=== PATIENT | male | born 1995 | race Caucasian/White ===

== ENCOUNTER 2021-03-02 08:43 | Outpatient (CLI) | payer OTHER ==
--- NOTE | 2021-03-02 09:43 | SLEEP CARE CONSULTATION ---
Information from patient questionnaire entered by Florence Jiang. I have reviewed and concur with the information entered by Florence Jiang. This document represents the service I personally performed and the decisions made by me, Nilda Todd ARNP. History of Present Illness Service Date and Time: 03/02/2021 0843 Reason for Visit: New patient Chief Complaint: reports: Unrefreshed sleep, Snoring, Excessive daytime sleepiness, Observed pauses in breathing, Fatigue, Frequent awakenings at night Date of Onset: 3+ years Usual bedtime: 1452-8418, weekends 2300 Time it takes to fall asleep: 30 minutes to 4 hours Snores at night: Yes Observed to quit breathing while asleep: Yes Sleeps alone due to snoring: No Number of times waking at night: 2-5 Reasons for waking at night: reports: Gasping for air, Other (unknown reason) Toss, Turn, or Twitch while sleeping: Yes (for about 30 mins to 2 hrs after falling asleep) Recalls having dreams: No Usually gets out of bed at: [id number]; [id number] Feels refreshed in the morning: No Morning headache: No Sleepy or fatigued during the day: Yes Ever fallen asleep while driving: No (drowsy driving, rarely) Takes day naps: Yes (once a week, after work for couple hours) Dreams during day naps: No Prior sleep studies: No Additional HPI information: I had the pleasure of seeing DARCI VEGAS today regarding the possibility of him having a sleep disorder. His current complaints are excessive daytime sleepiness, fatigue, frequent awakenings at night, observed pauses in breathing, snoring and unrefreshed sleep. He was discussing his sleeping habits at behavioral health and they suggested he try to be evaluated. He states if he doesn't get at least 11 hours of sleep he does not feel rested. His girlfriend has seen him have pauses in breathing when sleeping and has told him that he twitches for 30 minutes to 2 hours after he has fallen asleep. 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 Patient is Legally and lives in . Have you smoked in the past 12 months: No Alcohol use: Yes Alcohol amount and frequency: 4-5 drinks, 2-3 times/month Caffeine use: Yes Caffeine amount and frequency: 1 bottle of soda per week Family History Family history of sleep disordered breathing: Yes Family Hx Sleep Apnea: Father: Snoring, Sleep apnea - Treated Allergies and Home Medications Drug allergies reviewed: Yes (possibly Amoxicillin, not tested) Home medication list reviewed: Yes Allergy and home medication list: Lexapro 30 mg Zyrtec Review of Systems Weight gain over past 5 years: 45 Cardiovascular: denies: high blood pressure Gastrointestinal: denies: heartburn Neurological: reports: disorientation. denies: headaches Psychiatric: reports: anxiety, depression Ear/Nose/Throat: reports: sinus problems, wisdom teeth removed. denies: injury to nose, tonsillectomy Musculoskeletal: reports: joint pain, back pain Immunologic: reports: allergies to food or environment (*environment, spring and fall) Physical Exam Blood Pressure: 112/79 (right) Cuff size: wrist Heart Rate: 89 O2 Saturation: 96 Height: 5 ft 5 in Weight: 218 lb Body Mass Index: 36.2 BMI Classification: Obese Neck circumference: 15.25 (inches) Nostrils: patent to airflow Mouth and throat: narrow oropharynx Soft palate: long Hard palate: arched Uvula: normal Uvula visualization: 100% Mallampati Class I Tongue: enlarged in size with teeth cohen on lateral edges Tonsils: 1+ Neck: normal w/o lymphadenopathy or thyromegaly Heart: regular rate and rhythm Lungs: clear bilaterally Impression and Plan 1. Suspected Obstructive Sleep Apnea-Hypopnea Syndrome, as suggested by a history of loud and irregular snoring, observed cessation of breath while asleep, gasping or choking in sleep, frequent awakening during the night, unrefreshed sleep, cognitive impairment, and excessive daytime sleepiness. Narrow oropharynx and obesity are common predisposing factors for obstructive sleep apnea-hypopnea syndrome. I recommend proceeding to polysomnography to confirm the diagnosis and to assess severity. If the patient has significant sleep disordered breathing, a manual CPAP titration study will also be performed to find the optimal treatment pressure. I informed the patient of what the sleep studies involve and after some discussion, obtained agreement to proceed. The pathophysiology of obstructive sleep apnea-hypopnea syndrome was discussed with the patient and health risks of cardiovascular and cerebrovascular disease if not treated. [facility] brochure for obstructive sleep apnea-hypopnea syndrome given and reviewed. Risks of drowsy driving discussed in detail and patient advised to avoid long distance driving and to rib puller at the first sign of drowsiness. Patient agreed to plan. * Schedule polysomnography +- manual CPAP titration study and return in 1-2 weeks after the study to discuss result and initiate therapy. * Avoid long distance driving or driving when feeling sleepy. * Avoid alcohol, sedative and muscle relaxant around bedtime. * Attempt to lose weight. * Review instructions provided by trained office staff on how to prepare for the sleep study. * Return for follow-up after sleep study completed. Counseling Topics: Weight loss health impact Visit Type: In Office Time Spent with Patient (minutes): 30 Provider Statement: I spent 100% of the Face to Face Visit with the patient with greater than 50% spent counseling the patient and coordination of care.
[2021-03-02 09:44] VITALS: BP 112/79
== END 2021-03-02 08:44 | disposition home or self-care (01) ==
LOC: SC 08:43
PROVIDERS: ATTEND Nurse Practitioner Family
DX: R06.83 Snoring (principal); G47.8 Other sleep disorders; R06.81 Apnea, not elsewhere classified; E66.9 Obesity, unspecified; Z68.36 Body mass index [BMI] 36.0-36.9, adult
CPT/HCPCS: 99203; 99212

== ENCOUNTER 2021-06-21 12:42 | Outpatient (CLI) | payer OTHER ==
[2021-06-21] MEDS ORDERED: GADOBUTROL 10 MMOL/10 ML VIAL ONE (12:58)
--- NOTE | 2021-06-21 14:22 | MRI Report ---
PROCEDURE: Brain W/WO INDICATIONS: DIZZINESS, CT SHOWING POSSIBLE CYST CONTRAST: 9.5 mL Gadavist TECHNIQUE: Noncontrast axial T1 spin echo, axial T2 fast spin echo, sagittal and axial FLAIR, coronal T2 fast sp in echo, axial gradient echo, axial diffusion and ADC through the brain. After the administration of contrast, axial and coronal T1 spin echo with fat saturation through the brain. COMPARISON: None. FINDINGS: Image quality: Excellent. CSF spaces: Basal cisterns are patent. No extra-axial fluid collections. Ventricles are normal in size and shape. Brain: Nonenhancing lesion in the right mesial temporal lobe region consistent with a choroidal fissu re cyst measures approximately 9 mm. This demonstrates suppressed signal on the FLAIR sequence indica ting contents is similar to identical to that of CSF. Otherwise normal brain parenchymal signal inten sity. The major intracranial vascular flow-related signal voids are maintained. No mass effect or mid line shift. No abnormal intracranial susceptibility or enhancement. Skull and face: Calvarial marrow is normal in signal. Orbits appear normal. Sinuses: Small mucous retention cysts in the left and right maxillary sinuses. Otherwise clear parana alida sinuses and mastoid air cells. IMPRESSION: Approximately 9 mm cystic nonenhancing lesion in the right mesial temporal lobe is consistent with a benign choroidal fissure cyst, or less likely another benign intracranial cyst). No additional follow -up needed. Reviewed by: Marvin Quiñones MD on 06/21/2021 2:21 PM PST Approved by: Marvin Quiñones MD on 06/21/2021 2:21 PM PST Station ID: [id number]
[2021-06-22] MEDS ORDERED: GADOBUTROL 10 MMOL/10 ML VIAL IVP ONE (07:40)
== END 2021-06-21 12:43 | disposition home or self-care (01) ==
LOC: DI 12:42
PROVIDERS: ATTEND Physician Assistant
DX: R42 Dizziness and giddiness (principal); R90.89 Other abnormal findings on diagnostic imaging of central nervous system
CPT/HCPCS: 70553; A9585

== ENCOUNTER 2021-06-22 19:32 | Outpatient (CLI) | payer OTHER | END 2021-06-22 19:33 | disposition home or self-care (01) | LOC: SC 19:32 | PROVIDERS: ATTEND Nurse Practitioner Family | DX: F32.9 Major depressive disorder, single episode, unspecified (principal); G47.33 Obstructive sleep apnea (adult) (pediatric) | CPT/HCPCS: 95810 ==

== ENCOUNTER 2021-07-13 08:16 | Outpatient (CLI) | payer OTHER ==
[2021-07-13 09:06] VITALS: BP 128/73
--- NOTE | 2021-07-13 09:06 | SLEEP CARE CONSULTATION ---
Information from patient questionnaire entered by Damon Prince MA. I have reviewed and concur with the information entered by Damon Prince MA. This document represents the service I personally performed and the decisions made by , iNlda Todd ARNP. History of Present Illness Service Date and Time: 07/13/2021 0816 Initial [place] Sleepiness Scale score: 11 (in 2020) Current [place] Sleepiness Scale score: 13 (2021) Additional HPI information: DARCI VEGAS returns for follow up and results of the recently performed polysomnography. I explained the pathophysiology behind obstructive sleep apnea. We then spent quite a bit of time discussing different treatment options. For mild obstructive sleep apnea, surgery and oral appliance are alternatives to nasal CPAP therapy but in moderate or severe cases, nasal CPAP is the most effective and reliable treatment. Because apnea is primarily in supine position, then positional management therapy could be effective. Methods discussed such as positioning with pillows, using a T-shirt with tennis balls in the back, and shown commercial products that have a pillow format on back to prevent supine sleep. I reviewed the impact of weight changes on sleep apnea and strongly recommended losing weight. After some discussion, the patient opted to go with the nasal CPAP therapy. Nasal autoCPAP set at 4-15 cmH20 will be ordered with rationale explained. A manual titration study will be ordered if unable to find optimal pressure with office adjustments. I explained how CPAP machine works and what to expect when using the machine. Using CPAP every night in order to get used to it was emphasized. Patient advised to put CPAP mask on before getting into bed so as not to fall asleep without CPAP. To assist acclimation to CPAP use, it could also be used for a short time during day while reading or watching TV. The patient was instructed to call the CPAP supplier to discuss any mechanical problem that may occur. If the mask given is uncomfortable or is difficult to keep on through the night even with adjustment, contact the CPAP supplier as many will replace with another mask style if notified before 30 days. If snoring or perceives is not getting enough air or too much air from the machine, notify this office. [facility] patient education PAP tips reviewed and given to patient. Patient counseled not drink alcohol less than 4 hours before bedtime as it can increase snoring and apnea. Patient was cautioned about risks of drowsy driving until sleepiness symptoms resolve. Sleep Study - Results Type of Sleep Study: Polysomnography Prior sleep studies: No Polysomnography/Home Sleep Study results: IMPRESSION: The quality of the study is good. The patient had normal sleep efficiency. The sleep architecture was abnormal for sleep fragmentation and reduced amount of time spent in REM sleep. Respiratory monitoring showed moderate obstructive sleep apnea-hypopnea (AHI = 18.0) associated with frequent arousals, oxyhemoglobin desaturation and mild hypoxia (christoph oxygen saturation of 82%). The respiratory events occurred independently of sleep stage and body position (supine AHI = 19.1; non-supine = 16.99). Snore was light to loud in intensity. There was no significant periodic leg movement of sleep. Cardiac rhythm was normal sinus rhythm without significant arrhythmia. No abnormal behavior (parasomnia) observed during the night. Allergies and Home Medications Known drug allergies: No Drug allergies reviewed: Yes Home medication list reviewed: Yes (PROZAC 20MG DAILY , LEXAPRO 10MG (PT IS WEANING OFF)) Review of Systems Review of systems same as previous: Yes (no changes) Physical Exam Vital signs obtained and entered by: Ricki PRINCE CMA [facility] Blood Pressure: 128/73 (RIGHT, PULSE 94, RESP 18, ) Cuff size: wrist Heart Rate: 90 O2 Saturation: 97 (PAPER MASK) Height: 5 ft 5 in Weight: 215 lb (PT CLOTHES) Body Mass Index: 35.7 BMI Classification: Obese Impression and Plan 1. Obstructive Sleep Apnea-Hypopnea Syndrome, moderate, with lowest oxygen saturation of 82%. Obviously this is the cause of the patients symptoms of unrefreshed sleep, and excessive daytime sleepiness. Positive pressure therapy could benefit anxiety and depression. As mentioned above, the patient will be started on nasal autoCPAP therapy with pressure set at 4-15 cmH2O. A manual titration study will be completed if unable to find optimal treatment pressure with office adjustments. Compliance guidelines also reviewed. A copy of compliance guidelines will be given for reference at check out. 2. Hypoxemia, mild, with christoph oxygen saturation of 82% and 3.30 minutes spent under 90%. His baseline oxygen saturation was normal with an average oxygen saturation of 95%. * Nasal auto CPAP therapy, pressure at 4-15 cm H2O. * Attempt to lose weight. * Avoid alcohol consumption near bedtime. * Avoid supine sleep until using CPAP. * The patient is again cautioned about driving until sleepiness completely resolves. * Return one month after CPAP obtained. I will assess response to therapy and compliance at that time. Counseling Topics: Weight loss health impact Visit Type: In Office Time Spent with Patient (minutes): 21 Provider Statement: I spent 100% of the Face to Face Visit with the patient with greater than 50% spent counseling the patient and coordination of care.
== END 2021-07-13 08:17 | disposition home or self-care (01) ==
LOC: SC 08:16
PROVIDERS: ATTEND Nurse Practitioner Family
DX: G47.33 Obstructive sleep apnea (adult) (pediatric) (principal); E66.9 Obesity, unspecified; Z68.35 Body mass index [BMI] 35.0-35.9, adult; R09.02 Hypoxemia
CPT/HCPCS: 99212; 99213